=== PATIENT | male | born 1990 | race African-American/Black ===

== ENCOUNTER 2023-05-01 13:20 | Emergency (ER) | payer MEDICAID ==
[~2023-05-01] VITALS: Ht 180.3 cm; Wt 74.8 kg
[2023-05-01 13:57] VITALS: BP 98/55; PULSE 61; RESP 18; TEMP 98.6; O2SAT 100
[2023-05-01] MEDS ORDERED: IBUP-2029 MT (17:50)
== END 2023-05-01 19:33 | disposition home or self-care (01) ==
LOC: ER 13:20
DX: S92.901A Unspecified fracture of right foot, initial encounter for closed fracture (principal); Z88.0 Allergy status to penicillin; X58.XXXA Exposure to other specified factors, initial encounter; Y93.89 Activity, other specified; Y92.89 Other specified places as the place of occurrence of the external cause; Y99.8 Other external cause status
CPT/HCPCS: 29515; 73630; 99283

== ENCOUNTER 2023-05-02 09:10 | Emergency (ER) | payer MEDICAID ==
[~2023-05-02 09:10] MED LIST: IBUP-2029 MT
== END 2023-05-02 09:40 | disposition left against medical advice (07) ==
LOC: ER 09:36
DX: M79.671 Pain in right foot (principal); Z53.21 Procedure and treatment not carried out due to patient leaving prior to being seen by health care provider

== ENCOUNTER 2023-11-29 13:18 | Emergency (ER) | payer MEDICAID ==
[~2023-11-29] VITALS: Ht 180.3 cm; Wt 71.0 kg
[2023-11-29 13:23] VITALS: BP 129/78; PULSE 69; TEMP 98.4; O2SAT 98
[2023-11-29] MEDS: ACETAMINOPHEN 325MG TABLET PO STA (14:11)
[2023-11-29 16:20] LABS: CLARITY URINE CLEAR (CLEAR); COLOR URINE YELLOW (YELLOW); GLUCOSE URINE NEGATIVE (NEGATIVE); KETONES URINE NEGATIVE (NEGATIVE); LEUKOCYTE ESTERASE URINE TRACE (NEGATIVE); NITRITE URINE NEGATIVE (NEGATIVE); OCCULT BLOOD URINE NEGATIVE (NEGATIVE); PROTEIN URINE NEGATIVE (NEGATIVE)
[2023-11-29 16:30] VITALS: RESP 17
[2023-11-29 16:49] LABS: BACTERIA URINE 1+; RBC URINE NONE SEEN /hpf (0-2); SQUAMOUS EPITHELIAL CELL URINE FEW /lpf (RARE/1+); WBC URINE 0-2 /hpf (0-2)
[2023-11-29] MEDS ORDERED: IBUP-2029 MT (17:04)
== END 2023-11-29 17:18 | disposition home or self-care (01) ==
LOC: ER 13:56
DX: B34.9 Viral infection, unspecified (principal); Z88.0 Allergy status to penicillin
CPT/HCPCS: 81003; 99283

== ENCOUNTER 2024-04-27 13:01 | Emergency (ER) | payer MEDICAID ==
[~2024-04-27] VITALS: Ht 175.3 cm; Wt 70.0 kg
[2024-04-27 13:04] VITALS: BP 179/91; PULSE 45; RESP 16; TEMP 97.6; O2SAT 100
[2024-04-27] MEDS ORDERED: ONDANSETRON 4MG ODT PO ONE (13:15)
[2024-04-27] MEDS ORDERED: MECLIZINE 25MG TABLET PO ONE (13:15)
[2024-04-27 14:37] LABS: BASOPHILS % 0.2 % (0.0-2.0); EOSINOPHILS % 0.1 % (0.0-5.0); HEMOGLOBIN. 15.8 g/dL (14.0-18.0); LYMPHOCYTES % 8.3 % (20.0-50.0); MEAN CORPUSCULAR HEMOGLOBIN 27.6 pg (28.0-32.0); MEAN CORPUSCULAR VOLUME 83.7 fL (80.0-94.0); MONOCYTES % 3.1 % (2.0-8.0); NEUTROPHILS % 88.3 % (40.0-76.0); PLATELET 184 x1000/uL (130-400); RED BLOOD CELL COUNT 5.73 mill/uL (4.7-6.1); RED CELL DISTRIBUTION WIDTH 14.6 % (11.6-14.6); WHITE BLOOD COUNT 13.3 x1000/uL (4.5-11.0)
[2024-04-27 14:43] LABS: CHLORIDE 109 mEq/L (98-107); POTASSIUM 4.1 mEq/L (3.5-5.1); SODIUM 140 mEq/L (136-145)
[2024-04-27 14:44] LABS: CALCIUM 9.3 mg/dL (8.7-10.4); CARBON DIOXIDE 27 mEq/L (21-32)
[2024-04-27 14:49] LABS: CREATININE 1.2 mg/dL (0.6-1.3); GLUCOSE 118 mg/dL (70-105); UREA NITROGEN BLOOD 8 mg/dL (9-23)
[2024-04-27] MEDS ORDERED: MECL-299 MT (16:10)
== END 2024-04-27 14:58 | disposition home or self-care (01) ==
LOC: ER 13:01
DX: R42 Dizziness and giddiness (principal); Z88.0 Allergy status to penicillin
CPT/HCPCS: 36415; 80048; 85025; 99283